=== PATIENT | male | born 1945 | race Caucasian/White ===

== ENCOUNTER 2018-02-07 16:33 | Inpatient (IN) | payer OTHER ==
[~2018-02-07] VITALS: Ht 175.3 cm; Wt 80.3 kg
[2018-02-07] MEDS ORDERED: LABETALOL HCL 5 MG/ML ML 20ML VIAL IV ONE (17:30)
[2018-02-07] MEDS ORDERED: SODIUM CHLORIDE 0.9% 1,000 ML IV ONE (17:30)
[2018-02-07] MEDS ORDERED: LEVOFLOXACIN 500MG 100 ML IV ONE (17:30)
[2018-02-07 18:10] LABS: Basophils # (auto) 0 uL; Eosinophils # (auto) 0 uL; Eosinophils % (auto) 0.1 % (0.0-7.0); Hemoglobin 9.2 g/dL (13.5-17.5); Monocytes # (auto) 0 uL; Monocytes % (auto) 0.3 % (0.0-12.0)
[2018-02-07 18:11] LABS: Basophils % (auto) 0.1 % (0.0-2.0); Hematocrit 28.7 % (41.0-53.0); Lymphocytes # (auto) 0.9 uL; Lymphocytes % (auto) 10.7 % (10.0-50.0); Mean Corpuscular Hemoglobin 25.1 pg (28.0-32.0); Mean Corpuscular Hgb Conc. 31.9 g/dL (32.0-36.0); Mean Corpuscular Volume 78.7 fL (80.0-100.0); Neutrophils # (auto) 7.3 uL; Neutrophils % (auto) 88.8 % (37.0-80.0); Platelet Count (auto) 271 10^3/uL (140-450); Red Blood Cells 3.65 10^6/uL (4.5-5.90); Red Cell Distribution Width 17.8 % (11.8-14.3); White Blood Cell 8.2 10^3/uL (4.4-10.8)
[2018-02-07] MEDS ORDERED: TEMAZEPAM 15 MG CAP PO PRN (18:30)
[2018-02-07] MEDS ORDERED: NITROGLYCERIN 0.4 MG SL TAB SL PRN (18:30)
[2018-02-07] MEDS ORDERED: HYDROcodone-ACET 5/325MG TAB PO PRN (18:30)
[2018-02-07] MEDS ORDERED: ACETAMINOPHEN 500 MG TAB PO PRN (18:30)
[2018-02-07] MEDS ORDERED: MORPHINE SULFATE 4 MG/ML SYR/VIAL IV PRN (18:30)
[2018-02-07] MEDS ORDERED: PROMETHAZINE HCL 25 MG/ML 1ML IV PRN (18:30)
[2018-02-07] MEDS ORDERED: VANCOMYCIN 1GM/250ML 250 ML IV ONE (18:30)
[2018-02-07] MEDS ORDERED: PIPERACILLIN-TAZOB 3.375GM 100 ML IV ONE (18:30)
[2018-02-07] MEDS ORDERED: LORazepam 0.5 MG TAB PO PRN (18:30)
[2018-02-07] MEDS ORDERED: VANCOMYCIN PER PHARMACY 0 MG IV SCH (18:30)
[2018-02-07 18:31] LABS: Alanine Aminotransferase 47 U/L (16-61); Albumin 1.9 g/dL (3.4-5.0); Anion Gap 18 (5-15); Aspartate Aminotransferase 36 U/L (15-37); Calcium 7.7 mg/dL (8.5-10.1); Carbon Dioxide 15 mmol/L (21-32); Chloride 102 mmol/L (98-107); Glucose 110 mg/dL (74-106); Potassium 5.5 mmol/L (3.5-5.1); Sodium 135 mmol/L (136-145)
[2018-02-07 18:33] LABS: BUN/Creatinine Ratio 16.9; GFR African American 9 mL/min; GFR Non-African American 8 mL/min
[2018-02-07 18:36] LABS: Alkaline Phosphatase 284 U/L (45-117); Bilirubin, Total 0.8 mg/dL (0.2-1.0); Total Protein 6.7 g/dL (6.4-8.2)
[2018-02-07 18:40] LABS: Lactic Acid w/Reflex 4.7 mmol/L (0.4-2.0)
[2018-02-07 18:41] LABS: Blood Urea Nitrogen 128 mg/dL (7-18)
[2018-02-07] MEDS ORDERED: AMIODARONE HCL 150 MG in D5W 5% 100 ML IV ONE ×2 (18:45→18:50)
[2018-02-07] MEDS ORDERED: AMIODARONE HCL 900 MG in DEXTROSE 500 ML IV SCH (19:00)
[2018-02-07 19:10] VITALS: BP 82/55
[2018-02-07] MEDS: NOREPINEPHRINE 8 MG/250ML KIT 250 ML IV SCH (19:30)
[2018-02-07] MEDS ORDERED: DEXTROSE (50%) 50ML SYRG IV ONE (20:00)
[2018-02-07] MEDS ORDERED: SODIUM BICARBONATE 8.4 % INJ 50ML VIAL IV ONE (20:00)
[2018-02-07] MEDS ORDERED: InsuLIN REG 1unit/0.01ml Soln (100units/ml) IV ONE (20:00)
[2018-02-07] MEDS ORDERED: SODIUM POLYSTYRENE SULF 15GM/60ML SUSP PO ONE (20:00)
[2018-02-07] MEDS ORDERED: PHENYLEPHRINE INJ 20 MG in D5W 5% 250 ML IV SCH (20:00)
[2018-02-07] MEDS ORDERED: SODIUM CHLORIDE 0.9% 2,000 ML IV ONE (20:00)
[2018-02-07] MEDS ORDERED: PROPOFOL 100 ML IV ONE (20:21)
[2018-02-07] MEDS ORDERED: SUCCINYLCHOLINE CHLORIDE 20 MG/ML 10ML VIAL IV ONE (20:21)
[2018-02-07] MEDS: DIGOXIN (250MCG/ML) 2 ML AMPULE IV SCH (21:36)
[2018-02-07] MEDS: SODIUM CHLORIDE 0.9% 1,000 ML IV SCH (21:50)
[2018-02-08] VITALS (17 sets, daily range): BP systolic 108–142; BP diastolic 66–94
[2018-02-08] MEDS ORDERED: PROPOFOL 10 MG/ML 20 ML IV ONE (00:45)
[2018-02-08] MEDS ORDERED: SUCCINYLCHOLINE CHLORIDE 20 MG/ML 10ML VIAL IV ONE (00:45)
[2018-02-08 00:51] LABS: Hematocrit 27.9 % (41.0-53.0); Hemoglobin 8.7 g/dL (13.5-17.5)
[2018-02-08] MEDS: AMIODARONE HCL 900 MG in DEXTROSE 500 ML IV SCH (01:00)
[2018-02-08] MEDS ORDERED: ALBUMIN 5% 250 ML IV ONE ×2 (01:15→05:00)
[2018-02-08] MEDS ORDERED: VASOPRESSIN 20 UNIT/ML ONE ×2 (01:30→01:34)
[2018-02-08] MEDS: ENOXAPARIN SOD 60 MG/0.6 ML SYRINGE SC SCH ×2 (01:42→21:34)
[2018-02-08] MEDS: VASOPRESSIN 50 UNITS in D5W 5% 247.5 ML IV SCH (01:44)
[2018-02-08 02:06] LABS: INR 1.56 (0.9-1.15); Prothrombin Time 17.1 sec (9.37-12.3)
[2018-02-08] MEDS: SODIUM CHLORIDE 0.9% 1,000 ML IV SCH ×2 (02:26→10:26)
[2018-02-08] MEDS: DIGOXIN (250MCG/ML) 2 ML AMPULE IV SCH ×2 (03:24→09:15)
[2018-02-08] MEDS ORDERED: PHENYLEPHRINE IV 250 ML IV ONE (03:38)
[2018-02-08] MEDS: MORPHINE SULFATE 4 MG/ML SYR/VIAL IV PRN ×4 (04:24→20:31)
[2018-02-08] MEDS ORDERED: PHENYLEPHRINE HCL 10 MG/ML VL ONE (04:38)
[2018-02-08] MEDS: PIPERACILLIN-TAZOB 2.25GM 50 ML IV SCH ×3 (06:01→22:07)
[2018-02-08 06:23] LABS: Potassium 5.3 mmol/L (3.5-5.1)
[2018-02-08 06:34] LABS: BUN/Creatinine Ratio 17.7; Calcium 7.2 mg/dL (8.5-10.1)
[2018-02-08 06:54] LABS: Mean Corpuscular Hgb Conc. 30.6 g/dL (32.0-36.0)
[2018-02-08 06:59] LABS: Hematocrit 26.8 % (41.0-53.0); Hemoglobin 8.2 g/dL (13.5-17.5); Mean Corpuscular Hemoglobin 24.8 pg (28.0-32.0); Mean Corpuscular Volume 81.1 fL (80.0-100.0); Platelet Count (auto) 300 10^3/uL (140-450); Red Cell Distribution Width 18.3 % (11.8-14.3)
[2018-02-08 07:18] LABS: White Blood Cell 50.9 10^3/uL (4.4-10.8)
[2018-02-08 07:19] LABS: Basophils % (manual) 0 (0.0-2.0); Blast Cells 0; Eosinophils % (manual) 0 (0-7); Promyelocytes % 0; Reactive Lymphocytes 0
[2018-02-08 07:20] LABS: Cholesterol < 50 mg/dL (< 200); HDL Cholesterol 18 mg/dL (40-59); LDL Cholesterol 16 mg/dL (< 100); Triglycerides 87 mg/dL (< 150)
[2018-02-08] MEDS ORDERED: VANCOMYCIN 1GM/250ML 250 ML IV ONE (08:00)
[2018-02-08] MEDS: AZITHROMYCIN 500MG/ 250ML 250 ML IV SCH (10:00)
[2018-02-08] MEDS: PHENYLEPHRINE INJ 40 MG in SODIUM CHL 0.9% 250 ML IV SCH (10:18)
[2018-02-08 10:38] LABS: Albumin 1.9 g/dL (3.4-5.0); BUN/Creatinine Ratio 17.7; Bilirubin, Total 0.5 mg/dL (0.2-1.0); Calcium 6.7 mg/dL (8.5-10.1); Total Protein 5.6 g/dL (6.4-8.2)
[2018-02-08 10:58] LABS: Potassium 5.8 mmol/L (3.5-5.1)
[2018-02-08 12:16] LABS: Band Neutrophils % (manual) 8; Lymphocytes % (manual) 11 (10.0-50.0); Monocytes % (manual) 3 (0-12)
[2018-02-08 12:17] LABS: Metamyelocytes % 2; Myelocytes % 1
[2018-02-08] MEDS: PANTOPRAZOLE 40 MG TAB PO SCH (12:19)
[2018-02-08] MEDS ORDERED: EPINEPHrine HCL 1 MG/10 ML SYRG IV ONE (12:19)
[2018-02-08 13:28] LABS: Hematocrit 26.5 % (41.0-53.0); Hemoglobin 8.2 g/dL (13.5-17.5)
[2018-02-08] MEDS ORDERED: DEXTROSE (50%) 50ML SYRG IV PRN ×2 (14:45→22:00)
[2018-02-08] MEDS: ALBUMIN 5% 250 ML IV SCH (15:00)
[2018-02-08 15:41] LABS: Hematocrit 25.5 % (41.0-53.0)
[2018-02-08] MEDS: InsuLIN REG 1unit/0.01ml Soln (100units/ml) SC SCH ×2 (17:13→21:39)
[2018-02-08] MEDS: ACCU-CHEK COMFORT CURVE STRIP VI SCH ×2 (17:14→21:34)
[2018-02-08] MEDS ORDERED: DEXTROSE (50%) 50ML SYRG IV ONE (18:45)
[2018-02-08] MEDS ORDERED: SODIUM BICARBONATE 8.4 % INJ 50ML VIAL IV ONE (18:45)
[2018-02-08] MEDS ORDERED: InsuLIN REG 1unit/0.01ml Soln (100units/ml) IV ONE (18:45)
[2018-02-08] MEDS ORDERED: CALCIUM GLUC 4.65meq/50ml D5AE 50 ML IV ONE (18:45)
[2018-02-08] MEDS: SODIUM BICARBONATE 50ML VIAL 150 ML in D5W 5% 1,000 ML IV SCH (20:10)
[2018-02-08] MEDS: NOREPINEPHRINE 8 MG/250ML KIT 250 ML IV SCH (20:30)
[2018-02-08 21:22] LABS: Hemoglobin 7.8 g/dL (13.5-17.5)
[2018-02-08 22:11] LABS: Calcium 6.8 mg/dL (8.5-10.1); Potassium 4.6 mmol/L (3.5-5.1)
[2018-02-08 22:19] LABS: BUN/Creatinine Ratio 21.8; Bilirubin, Total 0.6 mg/dL (0.2-1.0)
[2018-02-08 22:20] LABS: Total Protein 5.7 g/dL (6.4-8.2)
[2018-02-09] VITALS (100 sets, daily range): BP systolic 80–148; BP diastolic 42–95
[2018-02-09] MEDS: ALBUMIN 5% 250 ML IV SCH ×2 (00:15→07:59)
[2018-02-09] MEDS: AMIODARONE HCL 900 MG in DEXTROSE 500 ML IV SCH (01:00)
[2018-02-09] MEDS: InsuLIN REG 1unit/0.01ml Soln (100units/ml) SC SCH ×6 (01:09→20:00)
[2018-02-09] MEDS: ACCU-CHEK COMFORT CURVE STRIP VI SCH ×6 (01:09→19:47)
[2018-02-09] MEDS: MORPHINE SULFATE 4 MG/ML SYR/VIAL IV PRN (02:06)
[2018-02-09] MEDS: PIPERACILLIN-TAZOB 2.25GM 50 ML IV SCH ×4 (02:45→19:46)
[2018-02-09] MEDS ORDERED: PHENYLEPHRINE HCL 10 MG/ML VL ONE (03:04)
[2018-02-09] MEDS ORDERED: PHENYLEPHRINE IV 250 ML IV ONE (03:05)
[2018-02-09] MEDS ORDERED: LORazepam 2MG/ML-1ML VIAL IV PRN (04:00)
[2018-02-09 04:14] LABS: Platelet Count (auto) 222 10^3/uL (140-450)
[2018-02-09 04:17] LABS: Hematocrit 23.1 % (41.0-53.0); Hemoglobin 7.7 g/dL (13.5-17.5); Mean Corpuscular Hemoglobin 25.7 pg (28.0-32.0); Mean Corpuscular Hgb Conc. 33.5 g/dL (32.0-36.0); Mean Corpuscular Volume 76.9 fL (80.0-100.0); Red Cell Distribution Width 17.7 % (11.8-14.3)
[2018-02-09 04:27] LABS: Basophils % (manual) 0 (0.0-2.0); Blast Cells 0; Eosinophils % (manual) 0 (0-7); Metamyelocytes % 0; Myelocytes % 0; Promyelocytes % 0; Reactive Lymphocytes 0; White Blood Cell 37.3 10^3/uL (4.4-10.8)
[2018-02-09 04:31] LABS: Albumin 2.1 g/dL (3.4-5.0); Calcium 6.5 mg/dL (8.5-10.1); Potassium 3.9 mmol/L (3.5-5.1)
[2018-02-09 04:38] LABS: Bilirubin, Total 0.7 mg/dL (0.2-1.0); Lactic Acid w/Reflex 2.5 mmol/L (0.4-2.0); Total Protein 6.1 g/dL (6.4-8.2)
[2018-02-09 04:56] LABS: Band Neutrophils % (manual) 6; Lymphocytes % (manual) 13 (10.0-50.0); Monocytes % (manual) 3 (0-12)
[2018-02-09] MEDS: SODIUM BICARBONATE 50ML VIAL 150 ML in D5W 5% 1,000 ML IV SCH ×2 (05:50→09:30)
[2018-02-09] MEDS ORDERED: LORazepam 2MG/ML-1ML VIAL IV ONE (06:00)
[2018-02-09 06:57] LABS: Hematocrit 23.7 % (41.0-53.0); Hemoglobin 7.9 g/dL (13.5-17.5)
[2018-02-09] MEDS: PHENYLEPHRINE INJ 40 MG in SODIUM CHL 0.9% 250 ML IV SCH ×6 (07:50→21:20)
[2018-02-09] MEDS: PANTOPRAZOLE 40 MG TAB PO SCH (10:00)
[2018-02-09] MEDS: AZITHROMYCIN 500MG/ 250ML 250 ML IV SCH (10:02)
[2018-02-09] MEDS ORDERED: SODIUM CHLORIDE 0.9% 500 ML IV ONE (11:45)
[2018-02-09] MEDS ORDERED: PANTOPRAZOLE 40 MG/10 ML VIAL IV ONE (11:45)
[2018-02-09] MEDS ORDERED: FUROSEMIDE 40 MG/4 ML VIAL IV ONE (12:00)
[2018-02-09] MEDS: metroNIDAZOLE 500MG/100ML 100 ML IV SCH ×2 (12:07→18:48)
[2018-02-09] MEDS: ALBUMIN 25% 100 ML IV SCH ×2 (12:07→19:46)
[2018-02-09 13:40] LABS: Hematocrit 22.1 % (41.0-53.0); Hemoglobin 7.1 g/dL (13.5-17.5)
[2018-02-09 13:54] LABS: Urine Bacteria MOD /hpf (None Seen); Urine WBC 813 /hpf (0 - 3); Urine WBC Clumps PRESENT /hpf (None Seen)
[2018-02-09 14:01] LABS: Urine Specific Gravity 1.015 (1.001-1.035)
[2018-02-09] MEDS ORDERED: DIGOXIN (250MCG/ML) 2 ML AMPULE IV ONE (15:15)
[2018-02-09] MEDS: LINEZOLID 600MG/300ML 300 ML IV SCH (16:06)
[2018-02-09] MEDS: VASOPRESSIN 50 UNITS in D5W 5% 247.5 ML IV SCH (16:07)
[2018-02-09] MEDS: NOREPINEPHRINE 8 MG/250ML KIT 250 ML IV SCH ×2 (16:09→21:20)
[2018-02-09] MEDS: ALBUTEROL SULF 2.5 MG/0.5ML(0.5%) NEB SOLN NEB PRN (16:48)
[2018-02-09 19:11] LABS: Hematocrit 24.9 % (41.0-53.0)
[2018-02-09 19:28] LABS: Calcium 6.4 mg/dL (8.5-10.1); Potassium 3.7 mmol/L (3.5-5.1)
[2018-02-09 19:31] LABS: BUN/Creatinine Ratio 21.2
[2018-02-09] MEDS: PANTOPRAZOLE 40 MG/10 ML VIAL IV SCH (21:51)
[2018-02-10] VITALS (99 sets, daily range): BP systolic 89–142; BP diastolic 35–93
[2018-02-10] MEDS: PIPERACILLIN-TAZOB 2.25GM 50 ML IV SCH ×4 (00:34→19:00)
[2018-02-10] MEDS: metroNIDAZOLE 500MG/100ML 100 ML IV SCH ×4 (00:34→17:46)
[2018-02-10] MEDS: ACCU-CHEK COMFORT CURVE STRIP VI SCH ×6 (00:35→20:00)
[2018-02-10] MEDS: InsuLIN REG 1unit/0.01ml Soln (100units/ml) SC SCH ×6 (00:35→20:00)
[2018-02-10 00:45] LABS: Hematocrit 23.4 % (41.0-53.0)
[2018-02-10 00:47] LABS: Hemoglobin 7.6 g/dL (13.5-17.5)
[2018-02-10] MEDS: LORazepam 2MG/ML-1ML VIAL IV PRN (00:55)
[2018-02-10] MEDS: VASOPRESSIN 50 UNITS in D5W 5% 247.5 ML IV SCH (01:15)
[2018-02-10] MEDS: LINEZOLID 600MG/300ML 300 ML IV SCH ×2 (02:08→14:20)
[2018-02-10] MEDS: SODIUM BICARBONATE 50ML VIAL 150 ML in D5W 5% 1,000 ML IV SCH ×2 (02:08→19:00)
[2018-02-10] MEDS: PHENYLEPHRINE INJ 40 MG in SODIUM CHL 0.9% 250 ML IV SCH ×4 (02:08→20:39)
[2018-02-10] MEDS: ALBUTEROL SULF 2.5 MG/0.5ML(0.5%) NEB SOLN NEB PRN ×2 (04:03→08:52)
[2018-02-10] MEDS: ALBUMIN 25% 100 ML IV SCH (04:23)
[2018-02-10] MEDS: NOREPINEPHRINE 8 MG/250ML KIT 250 ML IV SCH ×4 (05:01→21:05)
[2018-02-10 06:11] LABS: Mean Corpuscular Hgb Conc. 32.6 g/dL (32.0-36.0)
[2018-02-10 06:12] LABS: Hematocrit 23.7 % (41.0-53.0); Hemoglobin 7.7 g/dL (13.5-17.5); Mean Corpuscular Hemoglobin 25.7 pg (28.0-32.0); Mean Corpuscular Volume 78.9 fL (80.0-100.0); Platelet Count (auto) 192 10^3/uL (140-450); Red Cell Distribution Width 17.1 % (11.8-14.3)
[2018-02-10 06:15] LABS: White Blood Cell 31.1 10^3/uL (4.4-10.8)
[2018-02-10 06:16] LABS: Basophils % (manual) 0 (0.0-2.0); Blast Cells 0; Eosinophils % (manual) 0 (0-7); Metamyelocytes % 0; Myelocytes % 0; Promyelocytes % 0; Reactive Lymphocytes 0
[2018-02-10 06:32] LABS: Albumin 2.6 g/dL (3.4-5.0); BUN/Creatinine Ratio 23.4; Bilirubin, Total 0.9 mg/dL (0.2-1.0); Calcium 6.3 mg/dL (8.5-10.1); Potassium 3.2 mmol/L (3.5-5.1); Total Protein 5.7 g/dL (6.4-8.2)
[2018-02-10 06:55] LABS: Band Neutrophils % (manual) 2; Lymphocytes % (manual) 23 (10.0-50.0)
[2018-02-10 06:56] LABS: Monocytes % (manual) 2 (0-12)
[2018-02-10] MEDS: AZITHROMYCIN 500MG/ 250ML 250 ML IV SCH (10:16)
[2018-02-10] MEDS: PANTOPRAZOLE 40 MG/10 ML VIAL IV SCH ×2 (10:17→22:02)
[2018-02-10] MEDS ORDERED: FUROSEMIDE 40 MG/4 ML VIAL IV ONE (11:15)
[2018-02-10] MEDS: MORPHINE SULFATE 4 MG/ML SYR/VIAL IV PRN (15:45)
[2018-02-10] MEDS: cefTRIAXone 1GM/10ml IVPUSH 10 ML IV SCH (21:05)
[2018-02-11] VITALS (97 sets, daily range): BP systolic 90–133; BP diastolic 51–96
[2018-02-11] MEDS: metroNIDAZOLE 500MG/100ML 100 ML IV SCH ×3 (00:04→13:15)
[2018-02-11] MEDS: ACCU-CHEK COMFORT CURVE STRIP VI SCH ×7 (00:04→23:31)
[2018-02-11] MEDS: PIPERACILLIN-TAZOB 2.25GM 50 ML IV SCH ×2 (00:04→06:18)
[2018-02-11] MEDS: InsuLIN REG 1unit/0.01ml Soln (100units/ml) SC SCH ×7 (00:05→23:31)
[2018-02-11] MEDS: VASOPRESSIN 50 UNITS in D5W 5% 247.5 ML IV SCH (01:15)
[2018-02-11] MEDS: NOREPINEPHRINE 8 MG/250ML KIT 250 ML IV SCH ×3 (02:01→16:55)
[2018-02-11] MEDS: LINEZOLID 600MG/300ML 300 ML IV SCH ×3 (02:01→14:00)
[2018-02-11] MEDS: PHENYLEPHRINE INJ 40 MG in SODIUM CHL 0.9% 250 ML IV SCH ×4 (02:13→16:55)
[2018-02-11 03:49] LABS: Eosinophils # (auto) 0 uL; Eosinophils % (auto) 0.1 % (0.0-7.0); Hemoglobin 11.2 g/dL (13.5-17.5); Mean Corpuscular Volume 80.9 fL (80.0-100.0); White Blood Cell 24.4 10^3/uL (4.4-10.8)
[2018-02-11 03:51] LABS: Basophils # (auto) 0 uL; Basophils % (auto) 0.1 % (0.0-2.0); Hematocrit 33.4 % (41.0-53.0); Lymphocytes # (auto) 2.9 uL; Lymphocytes % (auto) 11.7 % (10.0-50.0); Mean Corpuscular Hemoglobin 27.2 pg (28.0-32.0); Mean Corpuscular Hgb Conc. 33.6 g/dL (32.0-36.0); Monocytes # (auto) 0.7 uL; Monocytes % (auto) 2.7 % (0.0-12.0); Neutrophils # (auto) 20.8 uL; Neutrophils % (auto) 85.4 % (37.0-80.0); Platelet Count (auto) 181 10^3/uL (140-450); Red Blood Cells 4.13 10^6/uL (4.5-5.90); Red Cell Distribution Width 18.5 % (11.8-14.3)
[2018-02-11 04:03] LABS: Albumin 2.3 g/dL (3.4-5.0); BUN/Creatinine Ratio 23.8; Calcium 6.7 mg/dL (8.5-10.1)
[2018-02-11 04:05] LABS: Total Protein 5.3 g/dL (6.4-8.2)
[2018-02-11 04:12] LABS: Potassium 2.7 mmol/L (3.5-5.1)
[2018-02-11] MEDS: MORPHINE SULFATE 4 MG/ML SYR/VIAL IV PRN (04:29)
[2018-02-11] MEDS: POTASSIUM CHL 20MEQ/100ML 100 ML IV SCH ×4 (05:03→23:00)
[2018-02-11] MEDS: SODIUM BICARBONATE 50ML VIAL 150 ML in D5W 5% 1,000 ML IV SCH ×2 (06:18→22:15)
[2018-02-11] MEDS: cefTRIAXone 1GM/10ml IVPUSH 10 ML IV SCH ×2 (09:25→21:06)
[2018-02-11] MEDS: PANTOPRAZOLE 40 MG/10 ML VIAL IV SCH ×2 (09:31→21:26)
[2018-02-11] MEDS: AZITHROMYCIN 500MG/ 250ML 250 ML IV SCH (09:32)
[2018-02-11] MEDS: ALBUMIN 25% 100 ML IV SCH ×2 (14:00→17:24)
[2018-02-11 20:10] LABS: BUN/Creatinine Ratio 22.8
[2018-02-11 20:21] LABS: Potassium 2.7 mmol/L (3.5-5.1)
[2018-02-11] MEDS: LORazepam 2MG/ML-1ML VIAL IV PRN (22:48)
[2018-02-12] VITALS (92 sets, daily range): BP systolic 90–136; BP diastolic 41–80
[2018-02-12] MEDS: MORPHINE SULFATE 4 MG/ML SYR/VIAL IV PRN (00:04)
[2018-02-12] MEDS: PHENYLEPHRINE INJ 40 MG in SODIUM CHL 0.9% 250 ML IV SCH ×5 (00:29→22:45)
[2018-02-12] MEDS ORDERED: DIGOXIN (250MCG/ML) 2 ML AMPULE IV ONE (01:30)
[2018-02-12] MEDS: POTASSIUM CHL 20MEQ/100ML 100 ML IV SCH (01:35)
[2018-02-12] MEDS: LINEZOLID 600MG/300ML 300 ML IV SCH ×2 (01:35→13:25)
[2018-02-12] MEDS: NOREPINEPHRINE 8 MG/250ML KIT 250 ML IV SCH ×2 (02:03→21:00)
[2018-02-12] MEDS: ACCU-CHEK COMFORT CURVE STRIP VI SCH ×5 (04:30→20:00)
[2018-02-12] MEDS: InsuLIN REG 1unit/0.01ml Soln (100units/ml) SC SCH ×5 (04:30→20:00)
[2018-02-12 06:32] LABS: Basophils # (auto) 0 uL; Basophils % (auto) 0.1 % (0.0-2.0); Eosinophils # (auto) 0.1 uL; Eosinophils % (auto) 0.4 % (0.0-7.0); Hematocrit 34.9 % (41.0-53.0); Hemoglobin 11.4 g/dL (13.5-17.5); Lymphocytes # (auto) 2.6 uL; Lymphocytes % (auto) 10.9 % (10.0-50.0); Mean Corpuscular Hemoglobin 27.2 pg (28.0-32.0); Mean Corpuscular Hgb Conc. 32.7 g/dL (32.0-36.0); Monocytes # (auto) 0.8 uL; Monocytes % (auto) 3.4 % (0.0-12.0); Neutrophils # (auto) 20.7 uL; Neutrophils % (auto) 85.2 % (37.0-80.0); Nucleated Red Blood Cells % 0.1 %; Platelet Count (auto) 150 10^3/uL (140-450); Red Cell Distribution Width 18.8 % (11.8-14.3); White Blood Cell 24.3 10^3/uL (4.4-10.8)
[2018-02-12 06:51] LABS: Albumin 2.6 g/dL (3.4-5.0); BUN/Creatinine Ratio 21.6; Bilirubin, Total 1.1 mg/dL (0.2-1.0); Potassium 3.4 mmol/L (3.5-5.1); Total Protein 5.1 g/dL (6.4-8.2)
[2018-02-12] MEDS: cefTRIAXone 1GM/10ml IVPUSH 10 ML IV SCH ×2 (09:34→21:06)
[2018-02-12] MEDS: AZITHROMYCIN 500MG/ 250ML 250 ML IV SCH (09:35)
[2018-02-12] MEDS: PANTOPRAZOLE 40 MG/10 ML VIAL IV SCH ×2 (09:35→22:00)
[2018-02-12 15:20] LABS: INR 1.59 (0.9-1.15); Partial Thromboplastin Time 47.6 sec (22.64-33.71); Prothrombin Time 17.4 sec (9.37-12.3)
[2018-02-12] MEDS: SODIUM CHLORIDE 0.9% 1,000 ML IV SCH (20:18)
[2018-02-13] VITALS (58 sets, daily range): BP systolic 81–130; BP diastolic 43–85
[2018-02-13] MEDS: LINEZOLID 600MG/300ML 300 ML IV SCH ×2 (01:16→01:25)
[2018-02-13] MEDS: LORazepam 2MG/ML-1ML VIAL IV PRN (01:26)
[2018-02-13] MEDS: PANTOPRAZOLE 40 MG/10 ML VIAL IV SCH (01:26)
[2018-02-13 03:49] LABS: Hemoglobin 11.1 g/dL (13.5-17.5); Mean Corpuscular Hemoglobin 27.1 pg (28.0-32.0); Mean Corpuscular Hgb Conc. 32.8 g/dL (32.0-36.0); Mean Corpuscular Volume 82.8 fL (80.0-100.0); Platelet Count (auto) 139 10^3/uL (140-450); Red Blood Cells 4.11 10^6/uL (4.5-5.90); Red Cell Distribution Width 18.6 % (11.8-14.3); White Blood Cell 17.1 10^3/uL (4.4-10.8)
[2018-02-13] MEDS: InsuLIN REG 1unit/0.01ml Soln (100units/ml) SC SCH ×3 (04:00→08:00)
[2018-02-13] MEDS: ACCU-CHEK COMFORT CURVE STRIP VI SCH ×3 (04:00→08:00)
[2018-02-13 04:02] LABS: Albumin 2.3 g/dL (3.4-5.0); BUN/Creatinine Ratio 23.9; Calcium 6.9 mg/dL (8.5-10.1)
[2018-02-13 04:16] LABS: Basophils % (manual) 0 (0.0-2.0); Blast Cells 0; Eosinophils % (manual) 0 (0-7); Myelocytes % 0; Promyelocytes % 0; Reactive Lymphocytes 0
[2018-02-13] MEDS: PHENYLEPHRINE INJ 40 MG in SODIUM CHL 0.9% 250 ML IV SCH ×2 (04:19→09:02)
[2018-02-13 04:20] LABS: Potassium 2.9 mmol/L (3.5-5.1)
[2018-02-13] MEDS ORDERED: POTASSIUM CHL 20MEQ/100ML 100 ML IV ONE (04:30)
[2018-02-13 04:53] LABS: Band Neutrophils % (manual) 3; Lymphocytes % (manual) 13 (10.0-50.0); Metamyelocytes % 1; Monocytes % (manual) 7 (0-12)
[2018-02-13] MEDS: MORPHINE SULFATE 4 MG/ML SYR/VIAL IV PRN (05:25)
[2018-02-13] MEDS: AZITHROMYCIN 500MG/ 250ML 250 ML IV SCH (10:15)
[2018-02-13] MEDS: cefTRIAXone 1GM/10ml IVPUSH 10 ML IV SCH (10:16)
[2018-02-13] MEDS ORDERED: LIDOCAINE 2% (LOCAL ANESTH.) PF 5ml SDV ONE ×4 (10:21→10:56)
[2018-02-13] MEDS ORDERED: ALBUMIN 25% 100 ML IV ONE ×2 (11:20→11:30)
[2018-02-13] MEDS: SODIUM CHLORIDE 0.9% 1,000 ML IV SCH (12:10)
== END 2018-02-13 18:40 | disposition hospice, home (50) | DRG 871 ==
LOC: EDBD 16:33 → ER 16:33 → OVERFLOW 16:34 → ICU WEST 02-08 18:31 → WEST WING 02-13 16:07
PROVIDERS: ADMIT Internal Medicine; ATTEND Internal Medicine
PROC: 02HV33Z Insertion of Infusion Device into Superior Vena Cava, Percutaneous Approach (ICD-10-PCS; 2018-02-08)
PROC: 05HY33Z Insertion of Infusion Device into Upper Vein, Percutaneous Approach (ICD-10-PCS; 2018-02-08)
PROC: 30233N1 Transfusion of Nonautologous Red Blood Cells into Peripheral Vein, Percutaneous Approach (ICD-10-PCS; 2018-02-08)
PROC: 0W993ZZ Drainage of Right Pleural Cavity, Percutaneous Approach (ICD-10-PCS; principal; 2018-02-13)
DX: A41.59 Other Gram-negative sepsis (principal); R65.21 Severe sepsis with septic shock; N17.0 Acute kidney failure with tubular necrosis; J96.01 Acute respiratory failure with hypoxia; E43 Unspecified severe protein-calorie malnutrition; G92 Toxic encephalopathy; J18.9 Pneumonia, unspecified organism; I50.43 Acute on chronic combined systolic (congestive) and diastolic (congestive) heart failure; J90 Pleural effusion, not elsewhere classified; D62 Acute posthemorrhagic anemia; E11.22 Type 2 diabetes mellitus with diabetic chronic kidney disease; N13.30 Unspecified hydronephrosis; I42.9 Cardiomyopathy, unspecified; K92.2 Gastrointestinal hemorrhage, unspecified; N18.4 Chronic kidney disease, stage 4 (severe); N39.0 Urinary tract infection, site not specified; Z51.5 Encounter for palliative care; Z66 Do not resuscitate; L89.159 Pressure ulcer of sacral region, unspecified stage; B95.2 Enterococcus as the cause of diseases classified elsewhere; E11.65 Type 2 diabetes mellitus with hyperglycemia; K76.89 Other specified diseases of liver; E87.5 Hyperkalemia; G35 Multiple sclerosis; I48.91 Unspecified atrial fibrillation; Z85.6 Personal history of leukemia; Z88.2 Allergy status to sulfonamides; Z68.26 Body mass index [BMI] 26.0-26.9, adult; Z79.899 Other long term (current) drug therapy
CPT/HCPCS: 10022; 36415; 36430; 36600; 51702; 70450; 71045; 74176; 76604; 76775; 76942; 80048; 80053; 80061; 80162; 80202; 81001; 82270; 82533; 82550; 82805; 82962; 83036; 83605; 83880; 84443; 84484; 85007; 85014; 85018; 85025; 85027; 85045; 85379; 85610; 85652; 85730; 86141; 86850; 86900; 86901; 86920; 87040; 87077; 87081; 87086; 87088; 87186; 87205; 87493; 92610; 93005; 93306; 94640; 96361; 96365; 96375; 96376; 99291; C9113; G0378; J0330; J0610; J1815; J1956; J2543; J2704; J3480; J3490; J7060; P9047